=== PATIENT | male | born 1995 | race Caucasian/White ===

== ENCOUNTER 2020-02-15 18:05 | Emergency (ER) | payer OTHER, SELFPAY ==
[2020-02-15] MEDS ORDERED: Ibuprofen 800 MG TAB ONE (18:34)
[2020-02-15] MEDS ORDERED: Acetaminophen 500 MG TAB ONE (18:34)
[2020-02-15] MEDS ORDERED: diphenhydrAMINE 25 MG CAP ONE (18:34)
[2020-02-15] MEDS ORDERED: Ondansetron ODT 4 MG TAB ONE (18:34)
== END 2020-02-15 18:47 | disposition home or self-care (01) ==
LOC: NAV ERS 18:05
DX: R51 Headache (principal); R11.2 Nausea with vomiting, unspecified; F17.210 Nicotine dependence, cigarettes, uncomplicated
CPT/HCPCS: 99283; Q0162; Q0163

== ENCOUNTER 2020-05-30 10:05 | Emergency (ER) | payer SELFPAY ==
[2020-05-30] MEDS ORDERED: Ketorolac Tromethamine 30 MG/ML VIAL ONE (10:21)
[2020-05-30] MEDS ORDERED: Ondansetron PF 4 MG/2 ML Vial ONE (10:21)
[2020-05-30] MEDS ORDERED: Sodium Chloride 0.9% 1,000 ML ONE ×2 (10:21→11:01)
[2020-05-30 10:25] LABS: #Basophils 0.1 thou/uL (0.0-0.2); #Eosinphils 0.3 thou/uL (0.0-0.7); #Monocytes 0.9 thou/uL (0.11-0.59); #Neutrophils 9.7 thou/uL (1.40-6.50); %Basophils 0.5 % (0.0-1.0); %Eosinophils 2.4 % (0.0-10.0); %Lymphocytes 21.7 % (21.0-51.0); %Monocytes 6.4 % (0.0-10.0); %Neutrophils 69.1 % (42.0-75.0); Mean Corpuscular HGB CONC 31.6 g/dL (32.0-36.0); Mean Corpuscular Hemoglobin 28.9 pg (27.0-31.0); Mean Corpuscular Volume 91.3 fL (78.0-98.0); Mean Platelet Volume 7.6 fL (7.4-10.4); Platelet Count 274 thou/uL (130-400); RBC Distribution Width 11.9 % (11.5-14.5); Red Blood Cell (RBC) Count 5.19 mill/uL (4.70-6.10)
[2020-05-30 10:43] LABS: ALT (SGPT) 49 U/L (8-55); AST (SGOT) 22 U/L (5-34); Albumin 4.7 g/dL (3.5-5.0); Alkaline Phosphatase 93 U/L (40-110); Anion Gap 15 mmol/L (10-20); BUN (Urea Nitrogen) 17 mg/dL (8.9-20.6); Bilirubin, Total 0.2 mg/dL (0.2-1.2); Calc. Creatinine Clearance 0 mL/min (70-130); Calcium 9.6 mg/dL (7.8-10.44); Carbon Dioxide 25 mmol/L (22-29); Chloride 107 mmol/L (98-107); Estimated GFR-MDRD 68; Globulin 3.2 g/dL (2.4-3.5); Glucose 132 mg/dL (70-105); Potassium 4.1 mmol/L (3.5-5.1); Protein, Total 7.9 g/dL (6.0-8.3); Sodium 143 mmol/L (136-145)
[2020-05-30] MEDS ORDERED: Fentanyl 100 MCG/2 ML VIAL ONE (11:01)
[2020-05-30 11:51] LABS: Bilirubin Negative (Negative); Blood, Urine Large (Negative); Clarity Clear (Clear); Glucose, Urine (Dipstick) Negative (Negative); Ketone, Urine Negative (Negative); Leukocyte Negative (Negative); Nitrite Negative (Negative); Protein, Urine (Dipstick) 30 mg/dL (Neg-Trace); Urobilinogen 0.2 mg/dL (Less than 2); pH, Urine 5.5 (5.0-9.0)
[2020-05-30 11:52] LABS: RBC/HPF 0-3 HPF (0-3); WBC/HPF 0-3 HPF (0-3)
[2020-05-30 11:53] LABS: Bacteria/HPF Rare-Few HPF (None Seen); Mucous/LPF 2+ LPF (<2+); Squamous Epithelial None Seen HPF (0-3)
[2020-05-30] MEDS ORDERED: HYDROcodone/Acetaminophen 5/325 mg Tablet ONE (13:09)
--- NOTE | 2020-05-30 14:24 | CT ---
ABDOMEN AND PELVIC CT SCAN WITHOUT IV CONTRAST: History Right flank pain and testicular pain. FINDINGS: Lung bases are clear. Liver, gallbladder, pancreas, and spleen are unremarkable. Adrenal glands are unremarkable. There i s evidence for dilatation of the right upper renal collecting system and right ureter down to an obst ructing 0.3 x 0.4 cm distal right ureteral calculus near the ureterovesicular junction. Normal-appea ring appendix. No left-sided renal or calculus. No large or small bowel obstruction. Small fat- containing umbilical hernia. IMPRESSION: Mild to moderately obstructing distal right ureteral calculus. Small fat-containing umbilical hernia. No evidence for other significant acute process. POS: [facility]RE
== END 2020-05-30 13:26 | disposition home or self-care (01) ==
LOC: NAV ERS 10:05
DX: N20.2 Calculus of kidney with calculus of ureter (principal); R11.2 Nausea with vomiting, unspecified; F17.210 Nicotine dependence, cigarettes, uncomplicated
CPT/HCPCS: 74176; 80053; 81003; 81015; 85025; 96361; 96374; 96375; J1885; J2405; J3010; J7050